=== PATIENT | male | born 1970 | race Caucasian/White ===

== ENCOUNTER 2023-12-14 21:11 | Emergency (ER) | payer MEDICAID ==
[~2023-12-14] VITALS: Ht 175.3 cm; Wt 84.0 kg
[2023-12-14 21:18] VITALS: TEMP 98.4; O2SAT 98
[2023-12-14] MEDS ORDERED: LIDOCAINE HCL/PF 1% 10 MG/ML 5ML VIAL INFIL ONE (23:00)
[2023-12-14] MEDS ORDERED: BACITRACIN ZINC OINT UDPKT TOP ONE (23:00)
[2023-12-14] MEDS ORDERED: IBUPROFEN 600MG TABLET PO ONE (23:00)
[2023-12-14] MEDS ORDERED: BACITRACIN ZINC OINT UDPKT TOP NR (23:45)
[2023-12-14] MEDS ORDERED: LIDOCAINE HCL/PF 1% 10 MG/ML 5ML VIAL INFIL NR (23:45)
[2023-12-15] MEDS: IBUPROFEN 600MG TABLET PO NR (00:12)
[2023-12-15] MEDS: TETANUS, DIPHTHERIA, PERTUSSIS VAC/PF 0.5ML (>10YR OLD) IM ONE (00:12)
[2023-12-15] MEDS ORDERED: BO1 TP (01:17)
[2023-12-15] MEDS ORDERED: IBUP-2029 MT (01:17)
[2023-12-15 01:44] VITALS: BP 145/76; PULSE 68; RESP 14
== END 2023-12-15 01:45 | disposition home or self-care (01) ==
LOC: ER 21:11
DX: S81.811A Laceration without foreign body, right lower leg, initial encounter (principal); Y08.89XA Assault by other specified means, initial encounter; Y93.89 Activity, other specified; Y92.89 Other specified places as the place of occurrence of the external cause; Y99.8 Other external cause status
CPT/HCPCS: 99283; 90715; 12002; 90471; J3490

== ENCOUNTER 2023-12-29 20:57 | Emergency (ER) | payer OTHER ==
[~2023-12-29] VITALS: Ht 175.3 cm; Wt 87.0 kg
[~2023-12-29 20:57] MED LIST: BO1 TP; IBUP-2029 MT
[2023-12-29 21:31] VITALS: O2SAT 96
[2023-12-29 22:15] VITALS: BP 131/76; PULSE 78; RESP 16; TEMP 98.2
== END 2023-12-29 22:16 | disposition home or self-care (01) ==
LOC: ER 20:57
DX: S81.811D Laceration without foreign body, right lower leg, subsequent encounter (principal); Z48.02 Encounter for removal of sutures; X58.XXXD Exposure to other specified factors, subsequent encounter
CPT/HCPCS: 99281